=== PATIENT | female | born 1980 | race Caucasian/White ===

== ENCOUNTER 2023-02-15 18:29 | Inpatient (IN) | payer SELFPAY ==
--- NOTE | ~2023-02-15 | CT_ITS ---
EXAMINATION: CT ABDOMEN AND PELVIS WITH CONTRAST CLINICAL INFORMATION: Lower abdominal pain. Nausea and vomiting. Fever. COMPARISON: None available. TECHNIQUE: Multidetector volumetric images were obtained from the superior aspect of the liver through the pubic symphysis following administration 85 mL of Omnipaque 350 intravenous contrast. Sagittal and coronal reformatted images were obtained on the technologist's workstation. Oral contrast: No This CT examination was performed using dose optimization techniques as appropriate, variously including the following: *Automated exposure control *Adjustment of mA and/or kV according to patient size (this includes techniques or standardized protocols for targeted exams where dose is matched to indication/reason for exam; i.e. extremities or head) *Use of iterative reconstruction technique DLP: 495 mGy-cm FINDINGS: LUNG BASES: The visualized lung bases are unremarkable. LIVER, GALLBLADDER, AND BILIARY TREE: Enlarged liver measuring 20.5 cm in CC dimension. The liver is normal in shape and attenuation. No focal hepatic lesion or biliary ductal dilatation is present. The gallbladder is unremarkable with no evidence of radiopaque gallstones, gallbladder wall thickening, or obvious pericholecystic inflammatory changes. PANCREAS: Unremarkable. SPLEEN: Unremarkable. ADRENAL GLANDS: Unremarkable. KIDNEYS AND URETERS: The kidneys are normal in size, shape, and attenuation. No hydronephrosis, hydroureter, or calculi seen. No perinephric stranding. BLADDER: Unremarkable. GASTROINTESTINAL TRACT: The stomach is unremarkable. Normal caliber of the small bowel. There is no obstruction. Abnormal appendix. The appendix is dilated measuring 1.6 cm. There is adjacent inflammation. No free air or fluid collection. Small amount of layering free fluid in the pelvis. The remainder of the colon is unremarkable. ABDOMINAL WALL: No significant hernia is appreciated. LYMPH NODES: Normal. VASCULAR: Unremarkable. PELVIC VISCERA: Anteverted uterus. Right adnexal mass measuring 5.3 cm. This has mixed attenuation, involving fat and calcification. This is consistent with a dermoid. OSSEOUS STRUCTURES: No acute or suspicious osseous abnormality. Degenerative changes of the lower lumbar spine. Bilateral L5 pars defects. CT/CT abdomen pelvis w IV con IMPRESSION: 1. Acute appendicitis. No free air or fluid collection. 2. Hepatomegaly. 3. Right adnexal dermoid. The report will be called to the ordering clinician by a [place] [facility] Workflow Coordinator.
[2023-02-15 19:00] VITALS: BP 89/67; PULSE 149; RESP 22; TEMP 39.3; O2SAT 98; BMI 24.2
--- NOTE | 2023-02-15 19:00 | ED.ABDPAIN ---
HPI - Abdominal Pain General Chief Complaint: Nausea/Vomiting/Diarrhea Stated Complaint: vomiting, intense lower abdominal pain Time Seen by Provider: 02/15/23 19:37 Source: patient Mode of arrival: ambulatory Limitations: no limitations History of Present Illness HPI narrative: Patient comes in the emergency room complaining of 2 days of nausea, vomiting, 1 episode of diarrhea which self-resolved, diffuse abdominal discomfort/distension, fever and chills. Patient states that she takes naproxen regularly for chronic back pain. Related Data Allergies Allergy/AdvReac Type Severity Reaction Status Date / Time bupropion [From WELLBUTRIN] Allergy Unknown Unknown Verified 02/15/23 22:13 Penicillins [PENICILLINS] Allergy Unknown HIVES Verified 02/15/23 20:22 Review of Systems Review of Systems Constitutional : No Weight loss, complaining of fever and chills No Night Sweats, No Fatigue, No Malaise ENT/Mouth : No Hearing loss, No Ear Pain, No Nasal Congestion, No Sinus Pain, No Hoarseness, No sore throat, No Rhinorrhea, No Swallowing Difficulty Eyes: No Eye Pain, No Swelling, No Redness, No Foreign Body, No Discharge, No Vision Changes Cardiovascular : No Chest Pain, No SOB, No Dyspnea on Exertion, No Orthopnea, No Edema, No Palpitations Respiratory : No Cough, No Sputum, No Wheezing, No Smoke Exposure, No Dyspnea Gastrointestinal : Complaining of nausea, vomiting, 1 episode of diarrhea, complaining of periumbilical abdominal discomfort and distension for today's Genitourinary : no irregular bleeding, No Dysuria, No Urinary Frequency, No Hematuria, No Urinary Incontinence, No Urgency, No Flank Pain, No Urinary Flow Changes, No Hesitancy Musculoskeletal : No joint pain, No Myalgias, No Joint Swelling Skin : No Skin Lesions, No rash Neuro : No Weakness, No Numbness, No Paresthesias, No Loss of Consciousness, No Dizziness, No Headache Psych : No Anxiety/Panic, No Depression, No SI/HI/AH/VH, No Social Issues, Heme/Lymph: No Bruising, No Bleeding,No Lymphadenopathy Endocrine : No Polyuria, No Polydipsia, No Temperature Intolerance PMF Social History Social History Alcohol intake: current Alcohol intake frequency: holidays/special occasions only Smoked in Last 30 Days: No Use of substances other than those prescribed or required for medical reasons: No Advance Directives: No Advance Directives Information Provided: Yes Patient : No Physical Exam ED Vital Signs: Vital Signs - 24 hr 02/15/23 19:00 02/15/23 19:27 02/15/23 19:59 Temperature 102.7 F H 100.4 F Pulse Rate 149 H 119 H 110 H Respiratory Rate 22 H 16 16 Blood Pressure 89/67 L 98/66 105/66 Pulse Oximetry 98 95 96 Oxygen Delivery Method Room Air Room Air Room Air 02/15/23 21:52 Temperature 98.1 F Pulse Rate 92 Respiratory Rate 14 Blood Pressure 107/63 Pulse Oximetry 98 Oxygen Delivery Method Room Air BMI result Body Mass Index 24.2 Const Other: Appearance: Alert. Oriented X3. No acute distress. Eyes: Pupils equal, round and reactive to light. ENT: Pharynx normal. Neck: Normal inspection. Neck supple. No lymph nodes noted. No crepitus CVS: Normal heart rate and rhythm. Pulses normal. Normal S1 and S2 Respiratory: No respiratory distress. Breath sounds normal. No Wheezing. No rales Abdomen: Soft , mild discomfort to palpation periumbilical area, No rigidity. No distention. No guarding, no rebound Skin: Skin warm and dry. Normal skin color. Normal skin turgor. Extremities: No lower extremity edema. No Lacerations. No Rash Neuro: Oriented X 3. No motor deficit. No sensory deficit. Moving all extremities. No slurred speech. CN 2 through 12 grossly intact Psych: calm, cooperative, normal affect Course Course Course Narrative: RME: 42yo F w/no sig PMHx c/o lower abdominal pain x2 days with nausea, vomiting, fever, & chills overnight. Admits to dry heaving. denies prior abdominal surgery. Hypotensive, febrile in triage 102 temporally, tachycardic, dry heaving, appears uncomfortable, pale, abdomen soft/nontender Patient meeting all sepsis criteria, charge nurse aware, patient will be brought back immediately Labs, UA, CTAP, IVF, Pepcid, Zofran, Toradol, Rocephin ordered Full HPI, ROS and PE to be performed by primary ED provider. Medical Decision Making Medical Decision Making MDM Narrative: -my interpretation of labs, white blood cell count is significantly elevated, lactic acid elevated, on arrival, patient received 3 L of fluid, ceftriaxone, although labs were pending at that time. -22:00, interpretation of the CT scan of the abdomen, patient has appendicitis -patient received ketorolac and morphine for pain -Zosyn was added -I discussed the patient with Dr. Rivera, patient being admitted Differential Diagnosis Differential Diagnoses: The differential diagnosis associated with the presentation includes (Appendicitis, ovarian cyst , SBO, perforated ulcer) Admission/Observation Consideration of admission/observation: Escalation of care including admission/observation considered Consult Healthcare Provider Management of the patient was discussed with: Director Of Consumer Marketing Lab Data [facility] Lab Attestation statement: I reviewed the patient's lab results. 02/15/23 19:14 02/15/23 19:14 Labs: Lab Results 02/15/23 02/15/23 02/15/23 Range/Units 19:14 19:14 19:14 WBC 23.6 H (4.8-10.8) X10*3/uL RBC 4.36 (4.20-5.50) X10*6/uL Hgb 13.0 (12.0-16.0) g/dl Hct 38.0 (37.0-47.0) % MCV 87.2 (80.0-98.0) fL MCH 29.8 (27.0-33.0) pg MCHC 34.2 (31.0-35.0) g/dl RDW 14.7 (11.0-16.0) % Plt Count 273 (160-400) X10*3/uL MPV 9.8 (9.4-12.3) fL Immature Gran % (Auto) 0.6 H (0.0-0.4) % Neut % (Auto) 88.9 H (45-73) % Lymph % (Auto) 7.8 L (20-40) % [place] % (Auto) 2.4 (2-11) % Eos % (Auto) 0.0 (0-4) % Baso % (Auto) 0.3 (0-2) % Lymph # (Auto) 1.8 (1.2-4.9) X10*3/uL Williamson # (Auto) 0.6 (0.1-1.2) X10*3/uL Eos # (Auto) 0.0 (0.0-0.4) X10*3/uL Baso # (Auto) 0.1 (0.0-0.2) X10*3/uL Abs Immat Gran (auto) 0.14 H (0.00-0.03) X10*3/uL Absolute Neuts (auto) 21.0 H (2.0-8.3) x10*3/uL Absolute Nucleated RBC 0.000 (0.0-0.012) X10*3/uL Nucleated RBC % (auto) 0.0 (0.0-0.2) /100WBC Smear Tech's Comments VERIFIED Sodium 137 (135-145) mmol/L Potassium 3.9 (3.3-5.1) mmol/L Chloride 104 (96-108) mmol/L Carbon Dioxide 23 (22-29) mmol/L Anion Gap 14 (12-20) BUN 13 (9-16) mg/dL Creatinine 0.91 (0.5-1.4) mg/dL Estim Creat Clear Calc 79.6 Estimated GFR > 60 Random Glucose 158 H (60-115) mg/dL Lactic Acid 2.9 H* (0.5-2.0) mmol/L Lactic Acid F/U @ 2Hr (0.5-2.0) mmol/L Calcium 9.0 (8.4-10.2) mg/dL Magnesium 1.9 (1.6-2.6) mg/dL Total Bilirubin 0.8 (0.0-1.0) mg/dL Direct Bilirubin 0.3 (0.0-0.5) mg/dL AST 12 (5-31) U/L ALT 9 (0-31) U/L Alkaline Phosphatase 88 (39-117) U/L Total Protein 7.2 (6.5-8.0) g/dL Albumin 3.7 (3.5-5.0) g/dL Lipase 8 (8-78) U/L Beta HCG, Quant < 2 mIU/mL Urine Color Urine Appearance Urine pH (5.0-9.0) Ur Specific [place] (1.005-1.025) Urine Protein (Neg-Trace) mg/dL Urine Glucose (UA) (Negative) mg/dL Urine Ketones (Negative) mg/dL Urine Blood (Negative) Urine Nitrite (Negative) Ur Leukocyte Esterase (Negative) Urine RBC (0-2) /HPF Urine WBC (0-5) /HPF Ur Squamous Epith Cells (0-2) /HPF Urine Bacteria (None Seen) Hyaline Casts (0-2) /LPF Urine Test (NEGATIVE) 02/15/23 02/15/23 02/15/23 Range/Units 20:32 20:32 21:27 WBC (4.8-10.8) X10*3/uL RBC (4.20-5.50) X10*6/uL Hgb (12.0-16.0) g/dl Hct (37.0-47.0) % MCV (80.0-98.0) fL MCH (27.0-33.0) pg MCHC (31.0-35.0) g/dl RDW (11.0-16.0) % Plt Count (160-400) X10*3/uL MPV (9.4-12.3) fL Immature Gran % (Auto) (0.0-0.4) % Neut % (Auto) (45-73) % Lymph % (Auto) (20-40) % Williamson % (Auto) (2-11) % Eos % (Auto) (0-4) % Baso % (Auto) (0-2) % Lymph # (Auto) (1.2-4.9) X10*3/uL [place] # (Auto) (0.1-1.2) X10*3/uL Eos # (Auto) (0.0-0.4) X10*3/uL Baso # (Auto) (0.0-0.2) X10*3/uL Abs Immat Gran (auto) (0.00-0.03) X10*3/uL Absolute Neuts (auto) (2.0-8.3) x10*3/uL Absolute Nucleated RBC (0.0-0.012) X10*3/uL Nucleated RBC % (auto) (0.0-0.2) /100WBC Smear Tech's Comments Sodium (135-145) mmol/L Potassium (3.3-5.1) mmol/L Chloride (96-108) mmol/L Carbon Dioxide (22-29) mmol/L Anion Gap (12-20) BUN (9-16) mg/dL Creatinine (0.5-1.4) mg/dL Estim Creat Clear Calc Estimated GFR Random Glucose (60-115) mg/dL Lactic Acid (0.5-2.0) mmol/L Lactic Acid F/U @ 2Hr 1.0 (0.5-2.0) mmol/L Calcium (8.4-10.2) mg/dL Magnesium (1.6-2.6) mg/dL Total Bilirubin (0.0-1.0) mg/dL Direct Bilirubin (0.0-0.5) mg/dL AST (5-31) U/L ALT (0-31) U/L Alkaline Phosphatase (39-117) U/L Total Protein (6.5-8.0) g/dL Albumin (3.5-5.0) g/dL Lipase (8-78) U/L Beta HCG, Quant mIU/mL Urine Color Dark Yellow Urine Appearance Cloudy Urine pH 5.5 (5.0-9.0) Ur Specific [place] 1.025 (1.005-1.025) Urine Protein 30 (1+) H (Neg-Trace) mg/dL Urine Glucose (UA) Negative (Negative) mg/dL Urine Ketones Trace (Negative) mg/dL Urine Blood Moderate (2+) H (Negative) Urine Nitrite Negative (Negative) Ur Leukocyte Esterase Trace H (Negative) Urine RBC 6-10 H (0-2) /HPF Urine WBC 0-5 (0-5) /HPF Ur Squamous Epith Cells 6-10 (0-2) /HPF Urine Bacteria 1+ (None Seen) Hyaline Casts 3-5 (0-2) /LPF Urine Test NEGATIVE (NEGATIVE) Independent Interpretation I performed an independent interpretation of an: CT Scan Radiology Impression Discussion of test interpretation with radiology: I have reviewed the radiologist's reading. Radiologist Impression: FINDINGS: LUNG BASES: The visualized lung bases are unremarkable.? LIVER, GALLBLADDER, AND BILIARY TREE: Enlarged liver measuring 20.5 cm in CC dimension. The liver is normal in shape and attenuation. No focal hepatic lesion or biliary ductal dilatation is present. The gallbladder is unremarkable with no evidence of radiopaque gallstones, gallbladder wall thickening, or obvious pericholecystic inflammatory changes.? PANCREAS: Unremarkable.? SPLEEN: Unremarkable.? ADRENAL GLANDS: Unremarkable.? KIDNEYS AND URETERS: The kidneys are normal in size, shape, and attenuation. No hydronephrosis, hydroureter, or calculi seen. No perinephric stranding. ? BLADDER: Unremarkable.? GASTROINTESTINAL TRACT: The stomach is unremarkable. Normal caliber of the small bowel. There is no obstruction. Abnormal appendix. The appendix is dilated measuring 1.6 cm. There is adjacent inflammation. No free air or fluid collection. Small amount of layering free fluid in the pelvis. The remainder of the colon is unremarkable.? ABDOMINAL WALL: No significant hernia is appreciated.? LYMPH NODES: Normal. VASCULAR: Unremarkable. PELVIC VISCERA: Anteverted uterus. Right adnexal mass measuring 5.3 cm. This has mixed attenuation, involving fat and calcification. This is consistent with a dermoid.? OSSEOUS STRUCTURES: No acute or suspicious osseous abnormality. Degenerative changes of the lower lumbar spine. Bilateral L5 pars defects.? CT/CT abdomen pelvis w IV con IMPRESSION: 1.? Acute appendicitis. No free air or fluid collection. 2.? Hepatomegaly. 3.? Right adnexal dermoid. ? Medications Administered Discontinued Medications Generic Name Dose Route Start Last Admin Trade Name Jermanq PRN Reason Stop Dose Admin Acetaminophen 650 mg 02/15/23 19:06 02/15/23 19:50 Acetaminophen 325 Mg Tablet PO 02/15/23 19:07 650 mg ONCE ONE Administration Famotidine 20 mg 02/15/23 19:03 02/15/23 19:49 Famotidine/Pf 20 Mg/2 Ml Vial IVPUSH 02/15/23 19:04 20 mg ONCE ONE Administration Sodium Chloride 1,000 mls @ 999 mls/hr 02/15/23 19:15 02/15/23 19:40 Ns IV 02/15/23 20:15 999 mls/hr .Q1H1M [place] Administration Ceftriaxone Sodium 1 gm/ 50 mls @ 100 mls/hr 02/15/23 19:05 02/15/23 19:45 Sodium Chloride IV 02/15/23 19:34 100 mls/hr ONCE ONE Administration Sodium Chloride 2,000 mls @ 999 mls/hr 02/15/23 19:39 02/15/23 20:28 Ns IVCONT 02/15/23 21:39 999 mls/hr .Q2H1M ONE Administration Iohexol 100 ml 02/15/23 21:06 02/15/23 21:09 Iohexol 350 Mg/Ml 100 Ml Infus..Btl IV 02/15/23 21:07 85 ml ONCE ONE Administration Ketorolac Tromethamine 15 mg 02/15/23 19:03 02/15/23 19:49 Ketorolac Tromethamine 15 Mg/Ml Vial IVPUSH 02/15/23 19:04 15 mg ONCE ONE Administration Ondansetron HCl 4 mg 02/15/23 19:03 02/15/23 19:49 Ondansetron Hcl 4 Mg/2 Ml Vial IVPUSH 02/15/23 19:04 4 mg ONCE ONE Administration Critical Care Time Critical Care Time Critical Care Time: Yes Total Critical Care Time: 60 Attestation: I have personally provided critical care time. Time includes review of lab data, radiology results, discussion with consultants, and monitoring for potential decompensation. Intervention performed as documented. Discharge Plan Discharge Clinical Impression: Acute appendicitis Patient Disposition: Admitted As Inpatient
[2023-02-15 19:21] LABS: Basophils Absolute Auto 0.1 X10*3/uL (0.0-0.2); Basophils Percent Auto 0.3 % (0-2); Imm Gran Abs Auto 0.14 X10*3/uL (0.00-0.03); Imm Gran Pct Auto 0.6 % (0.0-0.4); Lymphocytes Absolute Auto 1.8 X10*3/uL (1.2-4.9); Lymphocytes Percent Auto 7.8 % (20-40); MANUAL DIFF FLAG SCAN; Mean Corpuscular HGB Conc 34.2 g/dl (31.0-35.0); Mean Corpuscular Hemoglobin 29.8 pg (27.0-33.0); Mean Corpuscular Volume 87.2 fL (80.0-98.0); Mean Platelet Volume 9.8 fL (9.4-12.3); Monocytes Absolute Auto 0.6 X10*3/uL (0.1-1.2); Monocytes Percent Auto 2.4 % (2-11); Neutrophils Percent Auto 88.9 % (45-73); Platelet Count 273 X10*3/uL (160-400); Red Blood Count 4.36 X10*6/uL (4.20-5.50); Red Cell Distribution Width 14.7 % (11.0-16.0); SCAN SMEAR FLAG 1; White Blood Count 23.6 X10*3/uL (4.8-10.8)
[2023-02-15 19:27] VITALS: BP 98/66; PULSE 119; RESP 16; TEMP 38; O2SAT 95
--- NOTE | 2023-02-15 19:31 | MHC.EDTECH ---
PATIENT BLOOD DRAWN INCLUDING LACTIC ACID 1SET AND 2ND SETS OF BLOOD CULTURE ,PATIENT WAS BROUGHT BACK TO ROOM #11
[2023-02-15 19:36] LABS: Alanine Aminotransferase 9 U/L (0-31); Albumin Level 3.7 g/dL (3.5-5.0); Alkaline Phosphatase 88 U/L (39-117); Anion Gap 14 (12-20); Aspartate Amino Transferase 12 U/L (5-31); Bilirubin Direct 0.3 mg/dL (0.0-0.5); Bilirubin Total 0.8 mg/dL (0.0-1.0); Blood Urea Nitrogen 13 mg/dL (9-16); Carbon Dioxide 23 mmol/L (22-29); Chloride 104 mmol/L (96-108); Creatinine Clr Calc Pharmacy 79.6; Estimated Glomerular Filt Rate > 60; Glucose Random 158 mg/dL (60-115); Lipase 8 U/L (8-78); Magnesium 1.9 mg/dL (1.6-2.6); Potassium 3.9 mmol/L (3.3-5.1); Sodium 137 mmol/L (135-145); Total Protein 7.2 g/dL (6.5-8.0)
[2023-02-15 19:37] LABS: Lactic Acid 2.9 mmol/L (0.5-2.0)
[2023-02-15] MEDS: 0.9 % Sodium Chloride 1,000 ML 999 ML IV (19:40)
[2023-02-15 19:45] LABS: SLIDE REVIEW VERIFIED
[2023-02-15] MEDS: cefTRIAXone sodium 1 GM in 0.9 % Sodium Chloride 50 ML IV (19:45)
[2023-02-15] MEDS: Ketorolac Tromethamine 15 MG/ML VIAL IVPUSH (19:49)
[2023-02-15] MEDS: Famotidine/PF 20 MG/2 ML VIAL IVPUSH (19:49)
[2023-02-15] MEDS: ondansetron HCL 4 MG/2 ML VIAL IVPUSH (19:49)
[2023-02-15] MEDS: Acetaminophen 325 MG TABLET 650 MG PO (19:50)
[2023-02-15 19:59] VITALS: BP 105/66; PULSE 110; RESP 16; O2SAT 96
[2023-02-15 20:07] LABS: HCG Quantitative < 2 mIU/mL
[2023-02-15] MEDS: 0.9 % Sodium Chloride 2,000 ML 999 ML IVCONT (20:28)
[2023-02-15 20:44] LABS: Appearance Urine Cloudy; Color Urine Dark Yellow; Glucose Urine UA Negative (Negative); Leukocyte Esterase Urine Trace (Negative); Nitrite Urine Negative (Negative); PH 5.5 (5.0-9.0); Specific Gravity - Urine 1.025 (1.005-1.025); UMIC TRIGGER UACC YES; UPreg QC Valid YES; Urine Blood Moderate (2+) (Negative); Urine Ketones Trace mg/dL (Negative); Urine Pregnancy NEGATIVE (NEGATIVE); Urine Protein 30 (1+) mg/dL (Neg-Trace)
[2023-02-15 20:46] LABS: Bacteria Urine 1+ (None Seen); WBC Urine 0-5 /HPF (0-5)
[2023-02-15] MEDS: iohexoL 350 MG/ML 100 ML INFUS..BTL IV (21:09)
--- NOTE | 2023-02-15 21:13 | PC.NURSE ---
Pt arrived with elevated temp(see vitals), BC drawn, #20 IV R-AC. Fluids, antibiotics, zofran, toradol and tylenol administered. Discussed penicillin allergy with patient and . Does not believe to be a true allergy Med administered without side effects. Pt wet to CT awaiting labs and CT result.
[2023-02-15 21:18] LABS: Reflex Lactate? Lactic Acid Added
[2023-02-15 21:52] VITALS: BP 107/63; PULSE 92; RESP 14; TEMP 36.7; O2SAT 98
--- NOTE | 2023-02-15 22:22 | PHA.MEDREC ---
Pharmacy Consult ? Medication Reconciliation Pharmacy has completed the medication reconciliation. Patient reported all medications. Angela Manzano, DonaldoD
[2023-02-15] MEDS: Morphine Sulfate 4 MG/ML CARTRIDGE IVPUSH (22:28)
[2023-02-15] MEDS: Piperacillin Sodium/Tazobactam 3.375 GM in 0.9 % Sodium Chloride 50 ML IV (22:28)
[2023-02-16] VITALS (18 sets, daily range): BP systolic 90–116; BP diastolic 56–73; PULSE 78–132; RESP 16–18; TEMP 36.6–37.9; O2SAT 91–100; BMI 24.1
[2023-02-16] MEDS: Enoxaparin Sodium 40 MG/0.4 ML SYRINGE SUBCUT (00:15)
[2023-02-16] MEDS: Famotidine/PF 20 MG/2 ML VIAL IVPUSH ×2 (00:15→19:27)
[2023-02-16] MEDS: 0.9 % Sodium Chloride 1,000 ML 100 ML IVCONT ×2 (00:19→08:17)
[2023-02-16] MEDS: Ketorolac Tromethamine 30 MG/ML VIAL IVPUSH (02:13)
--- NOTE | 2023-02-16 07:47 | P.HPGS_ITS ---
History of Present Illness History of Present Illness Date of Service: 02/16/23 Chief complaint: Abdo Pain Narrative: Patsy Luciano is a 42 year old female presenting with complaints of abdominal pain in the right lower quadrant. The pain began on Monday and was noted to be in a bandlike fashion across the lower abdomen. The pain increased in severity and was associated with nausea and vomiting over the next 24 hours. Pain subsided on Monday but then increased suddenly after eating. She reports continued nausea/vomiting with fever and chills. She subsequently presented to the emergency department last evening for further evaluation. She denies a previous episode of similar pain and denies any sick contacts. She was evaluated in the emergency department noted to be tender in the right lower quadrant. WBC was noted to be markedly elevated. CT abdomen and pelvis con firmed acute appendicitis. She was admitted to the surgical service for further management. Review of Systems Review of Systems: Yes all other systems are reviewed and are negative Constitutional: Constitutional: Reports chills, Reports fever(s), Denies headache(s), Reports poor appetite and Denies weakness ENT: Denies headache(s) Cardiovascular: Cardiovascular: Denies chest pain, Denies irregular heart rhythm, Denies palpitations and Denies dyspnea Respiratory: Respiratory: Denies cough, Denies excessive phlegm production and Denies dyspnea Gastrointestinal: Gastrointestinal: Reports abdominal pain, Denies bloating, Denies change in bowel habits, Denies constipation, Denies heartburn, Denies diarrhea, Reports nausea and Reports vomiting Genitourinary: Genitourinary: Denies urinary frequency Musculoskeletal: Musculoskeletal: Denies back pain, Denies muscle weakness and Denies numbness Integumentary/Breasts: Skin/Breast: Denies changing lesions and Denies unusual bruising Neurologic: Denies headache(s), Denies numbness, Denies paresthesias and Denies weakness Psychiatric: Psychiatric: Denies anxiety and Denies depression Endocrine: Endocrine: Denies palpitations Hematologic/Lymphatic: Hematologic/Lymphatic: Denies lymphadenopathy [facility] Social History Social History Alcohol intake: current Alcohol intake frequency: holidays/special occasions only Smoked in Last 30 Days: No Use of substances other than those prescribed or required for medical reasons: No Advance Directives: No Advance Directives Information Provided: Yes Patient : No Meds Allergies Allergy/AdvReac Type Severity Reaction Status Date / Time bupropion [From WELLBUTRIN] Allergy Unknown Unknown Verified 02/15/23 22:13 Penicillins [PENICILLINS] Allergy Unknown Unknown Verified 02/15/23 22:17 Active Medications: Current Medications Acetaminophen (Acetaminophen 325 Mg Tablet) 650 mg PO Q6H PRN PRN Reason: Pain, Mild (Pain Scale 1-3) Enoxaparin Sodium (Enoxaparin Sodium 40 Mg/0.4 Ml Syringe) 40 mg SUBCUT Q24H [facility] Last Admin: 02/16/23 00:15 Dose: 40 mg Famotidine (Famotidine/Pf 20 Mg/2 Ml Vial) 20 mg IVPUSH BID [facility] Last Admin: 02/16/23 00:15 Dose: 20 mg Sodium Chloride (Ns) 1,000 mls @ 100 mls/hr IVCONT .Q10H [facility] Last Admin: 02/16/23 00:19 Dose: 100 mls/hr Piperacillin Sod/Tazobactam (Sod 3.375 gm/ Sodium Chloride) 50 mls @ 100 mls/hr IV Q6H [facility] Cefotetan Disodium 2 gm/ (Sodium Chloride) 50 mls @ 100 mls/hr IV PREOP ONE Stop: 02/16/23 08:13 Ketorolac Tromethamine (Ketorolac Tromethamine 30 Mg/Ml Vial) 30 mg IVPUSH Q6H PRN PRN Reason: Pain, Mild (Pain Scale 1-3) Stop: 02/20/23 23:04 Last Admin: 02/16/23 02:13 Dose: 30 mg Ondansetron HCl (Ondansetron Hcl 4 Mg/2 Ml Vial) 4 mg IVPUSH Q8H PRN PRN Reason: Nausea and Vomiting Sodium Chloride (0.9 % Sodium Chloride Flush 3 Ml Syringe) 3 ml IVFLUSH QSHIFT [facility] Last Admin: 02/16/23 07:43 Dose: Not Given Home Medications Medication Instructions Recorded Confirmed Last Taken Type norgestimate 0.25 mg-ethinyl 1 tab PO DAILY 02/15/23 02/15/23 02/15/23 History estradiol 35 mcg tablet sertraline 100 mg tablet 100 mg PO DAILY 08/16/23 08/16/23 08/16/23 History trazodone 50 mg tablet 100 mg PO BEDTIME 02/15/23 02/15/23 02/14/23 History Physical Exam Vital Signs: Vital Signs: Last Vital Signs Temp 97.9 F 02/16/23 05:59 Pulse 78 02/16/23 05:59 Resp 18 02/16/23 05:59 BP 105/67 02/16/23 05:59 Pulse Ox 97 02/16/23 05:59 O2 Del Method Room Air 02/16/23 05:59 BMI result Body Mass Index 24.2 Const: General: cooperative and no acute distress Nutritional Appearance: well nourished Orientation/consciousness: patient oriented x3 Limitations: no limitations HEENT: Head: Yes normocephalic and Yes atraumatic Ears: hearing grossly normal bilaterally Resp: Effort & Inspection: normal respiratory effort, no audible wheezes, no cough and no respiratory distress Cardio: Jugular venous distension: no JVD GI: Inspection: Yes normal to inspection Palpation (GI): Soft to palpation and Tenderness to palpation present (GI) in the LLQ, in the RLQ, at McBurney's point and Rovsing's sign positive Percussion: Yes normal to percussion Auscultation: normal bowel sounds Skin: Other: Warm, dry, no rash Neuro: General: patient oriented x3 Extrem: General: Yes no clubbing, cyanosis or edema Results Results Labs: Short CBC 02/15/23 Range/Units 19:14 WBC 23.6 H (4.8-10.8) X10*3/uL Hgb 13.0 (12.0-16.0) g/dl Hct 38.0 (37.0-47.0) % Plt Count 273 (160-400) X10*3/uL BMP 02/15/23 19:14 Sodium 137 Potassium 3.9 Chloride 104 Carbon Dioxide 23 BUN 13 Creatinine 0.91 Calcium 9.0 Liver Function 02/15/23 Range/Units 19:14 Total Bilirubin 0.8 (0.0-1.0) mg/dL Direct Bilirubin 0.3 (0.0-0.5) mg/dL AST 12 (5-31) U/L ALT 9 (0-31) U/L Alkaline Phosphatase 88 (39-117) U/L Albumin 3.7 (3.5-5.0) g/dL Urine 02/15/23 02/15/23 Range/Units 20:32 20:32 Urine Color Dark Yellow Urine Appearance Cloudy Urine pH 5.5 (5.0-9.0) Ur Specific [place] 1.025 (1.005-1.025) Urine Protein 30 (1+) H (Neg-Trace) mg/dL Urine Glucose (UA) Negative (Negative) mg/dL Urine Test NEGATIVE (NEGATIVE) Abdomen CT scan report/results: image reviewed CT scan - pelvis: image reviewed Assessment and Plan (1) Acute appendicitis: Status: Acute Plan 42-year-old female patient presenting with complaints of abdominal pain in the right lower quadrant of 3 days' duration found to have an elevated WBC and CT findings consistent with acute appendicitis without perforation. I recommended a laparoscopic or possible open appendectomy. I reviewed the procedure, risks, and alternatives in detail and she consents to the laparoscopic or possible open appendectomy. She is been added onto the operative schedule for this morning. Time Spent With Patient Time: Total time managing care of this patient today ____ minutes. Quality Stroke Does the patient have a stroke diagnosis?: No VTE Prior VTE?: No VTE Risk Level:: Surgical - moderate VTE Device Contraindication: N/A - Device Ordered VTE Drug Contraindication: N/A - Med Ordered Procedures Date of Service Date of Service: 02/16/23
--- NOTE | 2023-02-16 07:53 | PC.NURSE ---
this nurse was told by the coordinator volunteer services nurse there is a problem with the patients account as the patient is not showing admitted, this nurse was unable to obtain meds from pyxis for the patient, pharmacy was called and they stated the patients admit status was cancelled this nurse went to speak with the charge rere from last night which brought discussion with our grocery manager jean claude and director lucas moore and eduardo bacon and registration were called. dr. trimble came to overflow stating that the patient will be going to the OR for 9am, he was notified we are attempting to fix a problem with the patients account- he said he had noticed something off with the account as well- currently the account is being worked on, the patient will not be able to have medications until this problem is fixed.
--- NOTE | 2023-02-16 08:19 | PC.NURSE ---
this nurse talked to sss patient is being transported now to [facility], pt was undressed and significant other took all belongings including cell phone with him home. pharmacy stated to hol off giving the zosyn and it will be re-timed once pt is through with the OR, this nurse was still unable to see any patient medications in the pyxis- [facility] nurse was notified of this. [facility] transport came to unit and has taken the patient to [facility].
--- NOTE | 2023-02-16 09:53 | HO.ANESPROP2 ---
HPI - Anesthesia Eval Consult details Narrative: for lap appendectomy PMFSH Active Problems Active Problems: All Active Problems (Updated 02/16/23 @ 08:34 by Bryson Jorge RN) Acute appendicitis (Acute) Past Medical History Medical History (Updated 02/16/23 @ 08:34 by Bryson Jorge RN) No pertinent past medical history Patient : No Family History Family history of problems with anesthesia: No Surgical History Surgical History (Updated 02/16/23 @ 08:34 by Bryson Jorge RN) History of wisdom tooth extraction History of Problems with Anesthesia: No Social History Social History Alcohol intake: current Alcohol intake frequency: holidays/special occasions only Patient Tobacco Use Status: Never used Tobacco Second Hand Smoke Exposure: No Meds Allergies Allergy/AdvReac Type Severity Reaction Status Date / Time bupropion [From WELLBUTRIN] Allergy Unknown Unknown Verified 02/15/23 22:13 Penicillins [PENICILLINS] Allergy Unknown Unknown Verified 02/15/23 22:17 Active Medications: Current Medications Acetaminophen (Acetaminophen 325 Mg Tablet) 650 mg PO Q6H PRN PRN Reason: Pain, Mild (Pain Scale 1-3) Enoxaparin Sodium (Enoxaparin Sodium 40 Mg/0.4 Ml Syringe) 40 mg SUBCUT Q24H [facility] Last Admin: 02/16/23 00:15 Dose: 40 mg Famotidine (Famotidine/Pf 20 Mg/2 Ml Vial) 20 mg IVPUSH BID [facility] Last Admin: 02/16/23 00:15 Dose: 20 mg Sodium Chloride (Ns) 1,000 mls @ 100 mls/hr IVCONT .Q10H [facility] Last Admin: 02/16/23 08:17 Dose: 100 mls/hr Piperacillin Sod/Tazobactam (Sod 3.375 gm/ Sodium Chloride) 50 mls @ 100 mls/hr IV Q6H [facility] Ketorolac Tromethamine (Ketorolac Tromethamine 30 Mg/Ml Vial) 30 mg IVPUSH Q6H PRN PRN Reason: Pain, Mild (Pain Scale 1-3) Stop: 02/20/23 23:04 Last Admin: 02/16/23 02:13 Dose: 30 mg Ondansetron HCl (Ondansetron Hcl 4 Mg/2 Ml Vial) 4 mg IVPUSH Q8H PRN PRN Reason: Nausea and Vomiting Sodium Chloride (0.9 % Sodium Chloride Flush 3 Ml Syringe) [facility] Last Admin: 02/16/23 07:43 Dose: Not Given Home Medications Medication Instructions Recorded Confirmed Last Taken Type norgestimate 0.25 mg-ethinyl 1 tab PO DAILY 02/15/23 02/15/23 02/15/23 History estradiol 35 mcg tablet sertraline 100 mg tablet 100 mg PO DAILY 02/15/23 02/15/23 02/15/23 History trazodone 50 mg tablet 100 mg PO BEDTIME 02/15/23 02/15/23 02/14/23 History Exam Exam Date and Time: February 16, 2023 0953 Height,Weight and Vital Signs: Height 5 ft 8 in Weight 72.1 kg Last Vital Signs Temp 100.3 F 02/16/23 08:35 Pulse 106 H 02/16/23 08:35 Resp 16 02/16/23 08:35 BP 116/68 02/16/23 08:35 Pulse Ox 97 02/16/23 08:35 O2 Del Method Room Air 02/16/23 08:35 Pertinent Lab Results Pertinent Lab Results: Laboratory Tests 02/15/23 02/15/23 02/15/23 19:14 19:14 19:14 WBC 23.6 H RBC 4.36 Hgb 13.0 Hct 38.0 MCV 87.2 MCH 29.8 MCHC 34.2 RDW 14.7 Plt Count 273 MPV 9.8 Immature Gran % (Auto) 0.6 H Neut % (Auto) 88.9 H Lymph % (Auto) 7.8 L [place] % (Auto) 2.4 Eos % (Auto) 0.0 Baso % (Auto) 0.3 Lymph # (Auto) 1.8 [place] # (Auto) 0.6 Eos # (Auto) 0.0 Baso # (Auto) 0.1 Abs Immat Gran (auto) 0.14 H Absolute Neuts (auto) 21.0 H Absolute Nucleated RBC 0.000 Nucleated RBC % (auto) 0.0 Smear Tech's Comments VERIFIED Sodium 137 Potassium 3.9 Chloride 104 Carbon Dioxide 23 Anion Gap 14 BUN 13 Creatinine 0.91 Estim Creat Clear Calc 79.6 Estimated GFR > 60 Random Glucose 158 H Lactic Acid 2.9 H* Lactic Acid F/U @ 2Hr Calcium 9.0 Magnesium 1.9 Total Bilirubin 0.8 Direct Bilirubin 0.3 AST 12 ALT 9 Alkaline Phosphatase 88 Total Protein 7.2 Albumin 3.7 Lipase 8 Beta HCG, Quant < 2 Urine Color Urine Appearance Urine pH Ur Specific [place] Urine Protein Urine Glucose (UA) Urine Ketones Urine Blood Urine Nitrite Ur Leukocyte Esterase Urine RBC Urine WBC Ur Squamous Epith Cells Urine Bacteria Hyaline Casts Urine Test 02/15/23 02/15/23 02/15/23 20:32 20:32 21:27 WBC RBC Hgb Hct MCV MCH MCHC RDW Plt Count MPV Immature Gran % (Auto) Neut % (Auto) Lymph % (Auto) [place] % (Auto) Eos % (Auto) Baso % (Auto) Lymph # (Auto) [place] # (Auto) Eos # (Auto) Baso # (Auto) Abs Immat Gran (auto) Absolute Neuts (auto) Absolute Nucleated RBC Nucleated RBC % (auto) Smear Tech's Comments Sodium Potassium Chloride Carbon Dioxide Anion Gap BUN Creatinine Estim Creat Clear Calc Estimated GFR Random Glucose Lactic Acid Lactic Acid F/U @ 2Hr 1.0 Calcium Magnesium Total Bilirubin Direct Bilirubin AST ALT Alkaline Phosphatase Total Protein Albumin Lipase Beta HCG, Quant Urine Color Dark Yellow Urine Appearance Cloudy Urine pH 5.5 Ur Specific [place] 1.025 Urine Protein 30 (1+) H Urine Glucose (UA) Negative Urine Ketones Trace Urine Blood Moderate (2+) H Urine Nitrite Negative Ur Leukocyte Esterase Trace H Urine RBC 6-10 H Urine WBC 0-5 Ur Squamous Epith Cells 6-10 Urine Bacteria 1+ Hyaline Casts 3-5 Urine Test NEGATIVE Airway Mallampati Class: II TM Dist: <=3cm Neck ROM: Full Loose/Missing/Broken Teeth: No Heart: ok Lungs: ok Assessment and Plan Assessment Anesthesia Assessment: Anesthesia Plan Discussed and Chart Reviewed Final Anesthetic Review Family History of Problems with Anesthesia: No History of Problems with Anesthesia: No NPO: Yes ASA Class: I and Emergency Final Preanesthetic Review: No Changes in Pt Med Stat, Meds/Allgs Chart Reviewed, Consent Obtained/Reviewed and Anes Risks/Benef Reviewed Patient Risk: Low Procedure Risk: Intermediate Anesthetic Plan Anesthetic Plan: GA and Agree w/ Assess. and Plan Disposition: Standard PACU
--- NOTE | 2023-02-16 10:56 | W.PM.OPN ---
Operative Note Operative Note Date of Service: 02/16/23 Narrative: Preoperative diagnosis: Acute appendicitis Postoperative diagnosis: Same Procedure: Laparoscopic appendectomy Surgeon: Arik Ramirez MD Plant Science Professor:Hoda Rg PA-C Anesthesia: General endotracheal Indications for procedure: 42-year-old female patient presenting with acute onset of right lower quadrant abdominal pain found to have an elevated WBC and CT findings consistent with acute appendicitis. Operative findings: Acutely inflamed appendix without evidence of perforation. Specimen: Appendix Estimated blood loss: 5 mL Complications: none Procedure details: Patient was brought to the OR and placed in a supine position. After administering general anesthesia the patient's abdomen was prepped with ChloraPrep and draped in a sterile fashion. A surgical time-out was called and consent confirmed. Patient received preoperative antibiotics and Venodyne boots were in place. Local anesthesia consisting of 0.5% Sensorcaine with epinephrine was infiltrated in periumbilical region. A 5 mm incision was made below the umbilicus and carried down through subcutaneous tissue. A Veress needle was then inserted while elevating abdominal cavity with towel clips. After a positive drop test the abdomen was insufflated to a pressure of 15 mm of mercury. The Veress needle was removed and a 5 mm trocar inserted. The camera was then inserted in the abdomen explored. A 2nd 5 mm trocars placed in the lower midline. A 12 mm trocar was then placed in the left lower quadrant. The patient was then placed in a Trendelenburg position and rotated to the left. The appendix was identified in the right lower quadrant and brought up using blunt dissecting clamps. The mesentery of the appendix was then divided using the LigaSure. The appendiceal artery was cauterized and divided using the LigaSure. Dissection was continued down to the base of the cecum. An Endo-JULIUS stapler with a purple reload was then used to divide the appendix at the base with the cecum. The appendix was then placed in Endo-Catch bag and brought out through the left lower quadrant incision. The abdomen was then irrigated with saline solution and suctioned dry. Wounds were checked for hemostasis. CO2 was then evacuated from the abdominal cavity and all trocars removed. Fascia was closed in the left lower quadrant incision using a [id number] 0 Polysorb suture. Skin was closed at all incisions using a subcuticular 4-0 Polysorb suture. Steri-Strips 2 x 2 gauze and Tegaderm were then applied. The patient tolerated the procedure well. Sponge, instrument, needle counts reported as correct. The patient was transferred to PACU in stable condition.
[2023-02-16] MEDS: Acetaminophen 325 MG TABLET 650 MG PO ×2 (12:44→19:27)
[2023-02-16] MEDS: Dextrose 5 % and Lactated Ring 1,000 ML 125 ML IVCONT (15:53)
[2023-02-16] MEDS: oxyCODONE HCl Immed Release 5 MG TABLET PO ×2 (15:53→21:36)
[2023-02-16] MEDS: traZODone HCL 100 MG TABLET PO (19:27)
[2023-02-16 20:18] LABS: Hematocrit 30.3 % (37.0-47.0); Hemoglobin 10.3 g/dl (12.0-16.0); Mean Corpuscular Hemoglobin 29.5 pg (27.0-33.0); Mean Corpuscular Volume 86.8 fL (80.0-98.0); Mean Platelet Volume 9.4 fL (9.4-12.3); Platelet Count 213 X10*3/uL (160-400); Red Blood Count 3.49 X10*6/uL (4.20-5.50); White Blood Count 16.3 X10*3/uL (4.8-10.8)
[2023-02-16 20:37] LABS: Anion Gap 10 (12-20); Blood Urea Nitrogen 6 mg/dL (9-16); Calcium 7.8 mg/dL (8.4-10.2); Carbon Dioxide 22 mmol/L (22-29); Chloride 108 mmol/L (96-108); Creatinine Clr Calc Pharmacy 90.5; Estimated Glomerular Filt Rate > 60; Glucose Fasting 182 mg/dL (60-99); Potassium 3.3 mmol/L (3.3-5.1); Sodium 137 mmol/L (135-145)
[2023-02-17 03:03] VITALS: BP 110/64; PULSE 92; RESP 14; TEMP 36.2; O2SAT 95
[2023-02-17] MEDS: Dextrose 5 % and Lactated Ring 1,000 ML 125 ML IVCONT (03:44)
[2023-02-17 05:43] LABS: MANUAL DIFF FLAG NO
[2023-02-17 05:46] LABS: Basophils Absolute Auto 0.1 X10*3/uL (0.0-0.2); Basophils Percent Auto 0.4 % (0-2); Eosinophils Absolute Auto 0.1 X10*3/uL (0.0-0.4); Eosinophils Percent Auto 0.7 % (0-4); Hematocrit 31.4 % (37.0-47.0); Hemoglobin 10.6 g/dl (12.0-16.0); Imm Gran Abs Auto 0.05 X10*3/uL (0.00-0.03); Imm Gran Pct Auto 0.4 % (0.0-0.4); Lymphocytes Absolute Auto 2.4 X10*3/uL (1.2-4.9); Lymphocytes Percent Auto 17.6 % (20-40); Mean Corpuscular HGB Conc 33.8 g/dl (31.0-35.0); Mean Corpuscular Hemoglobin 29.7 pg (27.0-33.0); Mean Platelet Volume 9.8 fL (9.4-12.3); Monocytes Absolute Auto 0.5 X10*3/uL (0.1-1.2); Monocytes Percent Auto 3.6 % (2-11); Neutrophils Absolute Auto 10.4 x10*3/uL (2.0-8.3); Neutrophils Percent Auto 77.3 % (45-73); Platelet Count 229 X10*3/uL (160-400); Red Blood Count 3.57 X10*6/uL (4.20-5.50); White Blood Count 13.5 X10*3/uL (4.8-10.8)
[2023-02-17] MEDS: oxyCODONE HCl Immed Release 5 MG TABLET PO (05:48)
[2023-02-17] MEDS: Acetaminophen 325 MG TABLET 650 MG PO (05:51)
[2023-02-17 07:58] VITALS: BP 101/67; PULSE 82; RESP 18; TEMP 36.6; O2SAT 95
[2023-02-17] MEDS: Famotidine/PF 20 MG/2 ML VIAL IVPUSH (08:01)
[2023-02-17] MEDS: Sertraline HCL 100 MG TABLET PO (08:01)
--- NOTE | 2023-02-17 08:03 | P.DS_ITS ---
DS: Providers Provider Date of Service: 02/17/23 Date of admission: 02/15/23 23:01 Date of discharge: 02/17/23 Primary care physician: Unknown Physician Admitting clinician: Arik Ramirez Discharging clinician: Arik Ramirez DS: Diagnosis Discharge Diagnosis (1) Acute appendicitis: Status: Acute DS: Summary Hospital Course Hospital Course: Patsy Luciano is a 42 year old female presenting with complaints of abdominal pain in the right lower quadrant.? The pain began on Monday and was noted to be in a bandlike fashion across the lower abdomen.? The pain increased in severity and was associated with nausea and vomiting over the next 24 hours.? Pain subsided on Monday but then increased suddenly after eating.? She reports continued nausea/vomiting with fever and chills.? She subsequently presented to the emergency department last evening for further evaluation.? She denies a previous episode of similar pain and denies any sick contacts.? She was evaluated in the emergency department noted to be tender in the right lower quadrant.? WBC was noted to be markedly elevated.? CT abdomen and pelvis confirmed acute appendicitis.? She was admitted to the surgical service for further management.? On examination the patient was tender in the right lower quadrant with localized rebound. Findings are suggestive of acute appendicitis. She was taken to the OR on 02/16/2023 for a laparoscopic appendectomy. Findings were consistent with acute appendicitis without perforation. There was a significant phlegmon associated with the appendix. She tolerated the procedure well. On postoperative day 1 she is tolerating a regular diet without nausea or vomiting. Her incisions are clean, dry, and intact. She remains hemodynamically stable. Patient is ready for discharge to home. Discharge instructions were to avoid lifting greater than 10 lb for the next 2 weeks. She may resume a regular diet without restrictions. She will follow-up in the office in approximately 1 week for check. She may remove the dressings in 3 days he can shower with a without dressing on. Time spent discussing smoking cessation with patient: 3 to 10 minutes Status at Discharge Functional status at discharge: independent ambulation Overall status at discharge: patient is not back to baseline Time Spent with Patient Time attestation: Total time managing care of this patient today ____ minutes. Discharge coordination time: Less than 30 minutes Quality: Safe Use of Opioids Does Pt have an Active Cancer Diagnosis on the Problem List?: No Quality: Stroke Does the patient have a stroke diagnosis?: No Physical Exam Vital Signs: Vital Signs: Last Vital Signs Temp 97.8 F 02/17/23 07:58 Pulse 82 02/17/23 07:58 Resp 18 02/17/23 07:58 BP 101/67 02/17/23 07:58 Pulse Ox 95 02/17/23 07:58 O2 Del Method Room Air 02/17/23 07:58 O2 Flow Rate 2 02/16/23 12:35 BMI result Body Mass Index 24.1 Const: General: no acute distress Nutritional Appearance: well nourished Orientation/consciousness: patient oriented x3 Limitations: no limitations Resp: Effort & Inspection: normal respiratory effort, no audible wheezes, no cough and no respiratory distress GI: Other: Trocar incisions are clean, dry and intact Inspection: Yes normal to inspection Palpation (GI): Soft to palpation, nontender, no guarding and not rigid Neuro: General: patient oriented x3 Extrem: General: Yes normal to inspection DS: Data Data Completed and Pending Pending studies at discharge: Pending at discharge 02/16/23 10:43 Surgical [PTH] Routine Labs on day of discharge: Laboratory Results - last 24 hr 02/16/23 02/16/23 02/17/23 20:05 20:05 05:37 WBC 16.3 H 13.5 H RBC 3.49 L 3.57 L Hgb 10.3 L D 10.6 L Hct 30.3 L D 31.4 L MCV 86.8 88.0 MCH 29.5 29.7 MCHC 34.0 33.8 RDW 15.0 15.0 Plt Count 213 229 MPV 9.4 9.8 Immature Gran % (Auto) 0.4 Neut % (Auto) 77.3 H Lymph % (Auto) 17.6 L [place] % (Auto) 3.6 Eos % (Auto) 0.7 Baso % (Auto) 0.4 Lymph # (Auto) 2.4 [place] # (Auto) 0.5 Eos # (Auto) 0.1 Baso # (Auto) 0.1 Abs Immat Gran (auto) 0.05 H Absolute Neuts (auto) 10.4 H Absolute Nucleated RBC 0.000 0.000 Nucleated RBC % (auto) 0.0 0.0 Sodium 137 Potassium 3.3 Chloride 108 Carbon Dioxide 22 Anion Gap 10 L BUN 6 L Creatinine 0.80 Estim Creat Clear Calc 90.5 Estimated GFR > 60 Fasting Glucose 182 H Calcium 7.8 L D Preliminary micro results at discharge 02/15/23 19:41 Blood Culture - Preliminary Blood - Venous No growth after 24 hours. 02/15/23 19:41 Blood Culture - Preliminary Blood - Venous No growth after 24 hours. 02/15/23 19:23 Blood Culture - Preliminary Blood - Venous No growth after 24 hours. 02/15/23 19:14 Blood Culture - Preliminary Blood - Venous No growth after [address] scan - abdomen: Radiologist's impression: ITS Impressions Abdomen/Pelvis CT 02/15/23 21:18 IMPRESSION: 1. Acute appendicitis. No free air or fluid collection. 2. Hepatomegaly. 3. Right adnexal dermoid. The report will be called to the ordering clinician by a [facility] Workflow Coordinator. Discharge Plan Discharge Anticipated Discharge Date/Time: 02/17/23 08:09 Patient Disposition: Home, Self-Care Discharge Diagnosis: Acute appendicitis Referrals: Arik Ramirez MD [Physician] - 1 Week Physician,Donna Grier [Primary Care Provider] - 1 Week Discharge Medications: New oxycodone 5 mg capsule 5 mg PO Q6H PRN (Reason: pain (scale score 7-10)) Qty: 15 0RF Rx Instructions: Partial Fill upon patient request. Continued norgestimate-ethinyl estradiol 0.25-35 mg-mcg tablet 1 tab PO DAILY trazodone 50 mg tablet 100 mg PO BEDTIME sertraline 100 mg tablet 100 mg PO DAILY Discharge Orders: Discharge Order (Routine); Ordered 02/17/23 Ordered By: Arik Ramirez Activity on Discharge: No heavy lifting Stand Alone Forms: Patient Portal Discharge page Care Plan Goals: Return to normal activity and diet Health Concerns: Abdominal pain right lower abdomen Plan of Treatment: Laparoscopic appendectomy on 02/16/2023 Assessment: Acute appendicitis
--- NOTE | 2023-02-17 09:07 | MHC.CM.PN ---
PT REPORTS SHE LIVES WITH HER AND IS INDEPENDENT WITH CARE PT DENIES USE OF DME OR HOME SERVICES PT SAYS SHE HAS A HCP NAMING HER -COPY REQUESTED PCP: ROVERTO MARTÍNEZ PT WILL DC HOME TODAY WITH NO SERVICES TO TRANSPORT
--- NOTE | 2023-02-17 14:40 | HO.POSTANES ---
Post Anesthesia Evaluation Post Anesthesia Evaluation Date of Service: 02/16/23 Vital Signs: Vital Signs Temp Pulse Resp BP Pulse Ox O2 Del Method 02/17/23 07:58 97.8 F 82 18 101/67 95 Room Air 02/17/23 03:03 97.1 F 92 14 110/64 95 Room Air Anesthesia: General Endotracheal-GETA Mental Status: Awake Pain Control: Satisfactory Nausea/Vomiting: None Hydration: Adequate Anesthesia-Related Issues: No Anes. Related Issues
== END 2023-02-17 09:30 | disposition home or self-care (01) | DRG 343 ==
LOC: HO.ED 22:16 → HO.EDOVER 02-16 01:10 → HO.ED 02-16 07:30 → HO.EDOVER 02-16 08:05 → HO.S3 02-16 13:21
PROVIDERS: Physician Assistant; Admitting Provider Surgery; Emergency Provider Emergency Medicine; PCP Nurse Practitioner Family; Visit Provider Surgery
PROC: 0DTJ4ZZ Resection of Appendix, Percutaneous Endoscopic Approach (ICD-10-PCS; CPT 44970; principal; 2023-02-16 09:10)
DX: K35.80 Unspecified acute appendicitis (principal); Z79.3 Long term (current) use of hormonal contraceptives; Z79.899 Other long term (current) drug therapy
CPT/HCPCS: 36415; 74177; 80048; 80076; 81001; 81025; 83605; 83690; 83735; 84702; 85025; 85027; 87040; 88304; 99285; J0696; J1650; J1885; J2270; J2405; J2543; J2795; J3010; Q9967

== ENCOUNTER → 2023-02-15 19:35 | Outpatient (BNV) | payer SELFPAY | PROVIDERS: Emergency Provider Emergency Medicine; Visit Provider Surgery | DX: K35.80 Unspecified acute appendicitis (principal) | CPT/HCPCS: 44970; 99222; 99238 ==

== ENCOUNTER 2023-02-28 09:09 | Outpatient (AMB) | payer SELFPAY ==
--- NOTE | 2023-02-28 09:14 | MHC.OFFVIS ---
Intake Vital Signs 02/28/23 09:20 Height 5 ft 8 in Weight 155 lb 6 oz BMI 23.6 BP 100/70 Blood Pressure Location Lt brachial Position Sitting Intake Visit Reasons: post appendectomy (seen ED) Intake Note: Patient is seen in office for post op assessment post appendectomy. 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 Accompanied by: Self / Same As Patient Allergies bupropion [From WELLBUTRIN] Allergy (Unknown, Verified 02/28/23 09:21) Unknown Penicillins [PENICILLINS] Allergy (Unknown, Verified 02/28/23 09:21) Unknown Medication List - Last Reconciled 02/28/23 by Arik Ramirez MD norgestimate-ethinyl estradiol 0.25-35 mg-mcg 1 tab PO DAILY ondansetron HCl 4 mg PO Q8H PRN 5 days sertraline 100 mg PO DAILY trazodone 100 mg PO BEDTIME HPI HPI Comments History of Present Illness Details 42-year-old female patient presenting with a recent history of acute appendicitis, status post laparoscopic appendectomy on 02/16/2023. She returns today for postop visit. She feels well and denies any nausea, vomiting, fever or chills. She is eating well and denies any difficulties with her bowels. [facility] Medical History No pertinent past medical history Surgical History History of wisdom tooth extraction S/P laparoscopic appendectomy (02/20/23) Social History Household Members: Spouse Housing: House Do you presently have visiting nurse or other home services: No Alcohol intake: current Alcohol intake frequency: holidays/special occasions only Patient Tobacco Use Status: Never used Tobacco Second Hand Smoke Exposure: No service: No Physical Exam Const General: no acute distress Nutritional Appearance: well nourished Orientation/consciousness: patient oriented x3 Limitations: no limitations Resp Effort & Inspection: normal respiratory effort GI Other: Trocar incisions are clean, dry, and intact without redness or discharge. Inspection: Yes normal to inspection Palpation (GI): Soft to palpation, nontender, no guarding and not rigid Neuro General: patient oriented x3 Extrem General: Yes normal to inspection Assessment & Plan Assessment & Plan (1) Acute appendicitis: Code(s): K35.80 - Unspecified acute appendicitis Plan Patient returns 1 week following laparoscopic appendectomy for acute appendicitis. She feels much improved and denies any ongoing abdominal symptoms. She should continue to avoid lifting greater than 10 lb for another week after which she may resume normal activity. She should follow up as needed. Coding Level of Care Code Global (58802) Diagnoses Acute appendicitis K35.80
[2023-02-28 09:20] VITALS: BP 100/70; BMI 23.6
== END 2023-02-28 09:30 | disposition home or self-care (01) ==
PROVIDERS: PCP Nurse Practitioner Family; Visit Provider Surgery
DX: K35.80 Unspecified acute appendicitis (principal)
CPT/HCPCS: 99024

== ENCOUNTER → 2023-02-28 09:09 | Outpatient (BNVA) | payer SELFPAY | PROVIDERS: PCP Nurse Practitioner Family; Visit Provider Surgery ==